=== PATIENT | female | born 1975 | race Two or more races ===

== ENCOUNTER → 2024-11-28 | Outpatient (CLI) | payer MEDICAID, SELFPAY ==
--- NOTE | 2024-11-28 10:15 | XR_ITS ---
Examination: Breast ultrasound complete, bilateral Date and time of exam: November 28, 2024 1036 hours INDICATIONS: Bilateral retroareolar breast pain 4 months Technique: Real-time grayscale ultrasonographic imaging bilateral breasts, including all 4 quadrants as well as nipple retroareolar and axillary regions. Findings: Sonographic images right breast 10:00 cyst 12 x 11 mm 11:00 cyst 8 x 7 mm 11:00 cyst 6 x 5 mm No solid nodules Sonographic images left breast 11:00 cyst 8 x 9 mm No solid nodules IMPRESSION: BI-RADS Category 2: Benign findings
--- NOTE | 2024-11-28 11:15 | XR_ITS ---
Examination: Diagnostic digital mammography, bilateral Computer aided detection 3-D breast Tomosynthesis, bilateral Date and time of exam: November 28, 2024 at 1059 hours Comparison 07/16/2024 indications: Bilateral retroareolar breast pain 4 months Technique: Nonmagnified MLO, CC views of the breasts to been obtained, reconstructed from 3-D Tomosynthesis images. R2 computer aided detection program utilized for evaluation of suspicious masses and/or abnormal calcifications. 3-D Tomosynthesis images obtained. Findings: The breasts are heterogeneously dense, which may obscure small masses Benign calcifications. No suspicious masses Impression: BI-RADS Category 2: Benign findings Recommend yearly follow-up mammography If breast pain persists recommend 6 month follow-up bilateral breast sonography.
== END | disposition home or self-care (01) ==
PROVIDERS: PCP Physician Assistant; Referring Provider Physician Assistant; Visit Provider Physician Assistant
DX: R92.323 Mammographic fibroglandular density, bilateral breasts (principal); R92.1 Mammographic calcification found on diagnostic imaging of breast; N60.01 Solitary cyst of right breast; N60.02 Solitary cyst of left breast
CPT/HCPCS: 76641; 77062; 77066; G0279

== ENCOUNTER → 2024-12-05 | Outpatient (CLI) | payer MEDICAID, SELFPAY ==
--- NOTE | 2024-12-05 07:00 | XR_ITS ---
Examination: MRI abdomen, without contrast Date and time of exam: December 05, 2024 at 0656 hrs. Indications: CT abdomen pelvis June 04, 2024 18 mm low-density right lobe liver lesion Technique: Multiple axial sagittal and coronal images of the abdomen have been obtained with the Siemens high-resolution 1.5 Yashira MRI scanner. Images obtained include T2-weighted fat-suppressed sagittal sections, TR 3500, TE 46, T2 weighted coronal fat suppressed images, TR 3050, TE 84, T2-weighted transverse fat suppressed images, TR 3260, TE 63, proton density transverse images, TR 4720 TE 46, and T1 weighted coronal images, TR 560, TE 13. Findings: Liver is irregular in contour 21 mm right lobe liver cyst, hyperintense signal on the T2-weighted images 2 mm, 4 mm cyst also in the anterior left lobe liver No biliary tract dilatation Gallbladder is not distended No pancreatic mass Spleen is not enlarged No hydronephrosis No common hepatic common bile duct stones Negative for ascites Impression: Liver cysts, the largest on the right lobe liver 21 mm, no solid liver lesions noted
== END | disposition home or self-care (01) ==
PROVIDERS: PCP Physician Assistant; Referring Provider Physician Assistant; Visit Provider Physician Assistant
DX: K76.89 Other specified diseases of liver (principal)
CPT/HCPCS: 74181

== ENCOUNTER → 2025-05-15 | Outpatient (CLI) | payer OTHER, SELFPAY ==
--- NOTE | 2025-05-15 13:30 | XR_ITS ---
Examination: Breast ultrasound complete, bilateral Date and time of exam: May 15, 2025 1533 hours INDICATIONS: Bilateral breast cystic disease on ultrasound November 28, 2024 Technique: Real-time grayscale ultrasonographic imaging bilateral breasts, including all 4 quadrants as well as nipple retroareolar and axillary regions. Findings: Sonographic images right breast 8:00 cyst 6 x 5 mm 9:00 cyst 10 x 6 mm Sonographic images left breast 3:00 cyst 5 x 7 mm 11:00 cyst 6 x 8 mm IMPRESSION: BI-RADS Category 2: Benign cysts, the largest described above No solid nodules
== END | disposition home or self-care (01) ==
PROVIDERS: PCP Physician Assistant; Referring Provider Physician Assistant; Visit Provider Physician Assistant
DX: N60.01 Solitary cyst of right breast (principal); N60.02 Solitary cyst of left breast
CPT/HCPCS: 76641

== ENCOUNTER 2025-07-11 19:07 | Emergency (ER) | payer BC, SELFPAY ==
[2025-07-11 19:07] VITALS: BMI 36.8
[2025-07-11 20:45] VITALS: BP 108/77; PULSE 89; RESP 18; TEMP 36.6; O2SAT 97
[2025-07-11 21:21] LABS: Collection Type, Urine Clean Catch
[2025-07-11 21:30] LABS: HCG Qualitative,Urine Negative
[2025-07-11 21:33] LABS: Bacteria,Urine 1+; Bilirubin,Urine Negative (Negative); Blood,Urine 1+ (Negative); Budding Yeast,Urine Present; Clarity,Urine Turbid (Clear/Hazy); Color,Urine Lt-Yellow (Lt Yel-Yel); Culture Indicated,Urine Yes; Glucose, Urine Negative (Negative); Ketones,Urine Negative (Negative); Leukocyte Esterase,Urine Positive (Negative); Nitrite,Urine Negative (Negative); PH,Urine 6.5 (5.0-7.0); Protein,Urine Trace (Neg - Trace); RBC,Urine 23 /hpf (0-3); Specific Gravity,Urine 1.011 (1.001-1.035); Squamous Epithelial Cell,Urine 6 /hpf (0-5); Urobilinogen,Urine Negative mg/dL (0.0-1.0); WBC,Urine 402 /hpf (0-5)
[2025-07-11 21:39] LABS: Amphetamine/Methamp Scrn,U Negative (Negative); Barbiturate Screen,Urine Negative (Negative); Benzodiazepines Screen,Urine Negative (Negative); Benzoylecgonine Screen, Ur Negative (Negative); Fentanyl Screen,Urine Negative (Negative); Opiate Screen,Urine Negative (Negative); THC Screen,Urine Negative (Negative)
--- NOTE | 2025-07-11 22:05 | PD.EDFMALE ---
ED Female Urogenital RME/HPI General Chief complaint: Abdominal Pain Stated complaint: LOWER ABDOMINAL PAIN, BURNING WITH URINATION Arrival date/time: 07/11/25 19:07 RME / HPI RME / HPI Narrative: DR. YOST MAIN ED EVALUATION: 50 y/o female with Hx of HTN presents with suprapubic abdominal pain, right flank pain, and severe dysuria x 5 days. She took Tylenol 1 G at approximately 4 PM with some relief. Patient states she had to significantly decrease her fluid intake for an endoscopy that she had 4 days ago. No other concerns or complaints expressed at this time. Related Data Previous Rx's ?Medication ?Instructions ?Recorded cephalexin 500 mg capsule 500 mg PO BID #20 caps 09/17/21 oxycodone-acetaminophen 5 mg-325 1 tab PO Q4H PRN pain #10 tabs 09/17/21 mg tablet (Percocet) cephalexin 500 mg capsule 1,000 mg (2 x 500 mg) PO BID 5 07/11/25 days #20 caps Allergies Allergy/AdvReac Type Severity Reaction Status Date / Time ibuprofen Allergy Mild Rash Verified 09/26/17 09:36 Review of Systems Review of Systems Systems Reviewed: All systems reviewed, normal except as documented Past Medical History Past Medical History CARDIAC: Positive Hypertension ED Exam Narrative Physical exam: Generally patient is alert in no obvious distress, heart regular rate and rhythm, lungs clear to auscultation bilaterally, abdomen soft bowel sounds present nondistended epigastric abdominal tenderness without rebound, skin is cool pale and dry, extremities show no edema, neurologic exam shows Paden Coma Scale 15 Course Quality Measures none Orders Category Date Time Status Drug Screen,Urine Stat Lab 07/11/25 20:50 Completed HCG Qualitative,Urine Stat Lab 07/11/25 20:50 Completed Urinalysis, C/S if Indicated Stat Lab 07/11/25 20:50 Completed Urine Culture Stat Lab 07/11/25 20:50 Received HYDROcodone/APAP 10/325 [[place]joy 10/325] Med 07/11/25 22:04 Discontinued 1 tab PO X1 ONE Vital Signs Vital signs: Vital Signs Temperature 97.9 F 07/11/25 20:45 Pulse Rate 89 07/11/25 20:45 Respiratory Rate 18 07/11/25 20:45 Blood Pressure 108/77 07/11/25 20:45 Pulse Oximetry (%) 97 07/11/25 20:45 Oxygen Delivery Method Room Air 07/11/25 20:45 Urogenital - Female MDM Narrative MDM Narrative:: Differential diagnosis: UTI, intra-abdominal infection, bowel obstruction I interpreted all labs. Urine is infected. is negative. K-Flex as prescribed. Continue other current medications. She was given a 10 mg hydrocodone tablet here in the emergency room. Patient will be discharged in stable condition today Tylenol for pain. Patient data External records reviewed:: [facility] previous records (No recent ED records available for review.) Clinical information provided by:: patient Social determinants that could affect healthcare access:: none Patient has the following chronic illnesses:: HTN How is presenting disease/condition affected by chronic disease/condition?: uneffected by Evaluation data The following diagnostics were reviewed and interpreted by me:: lab results Lab and/or radiology exams considered but not ordered:: None Interpretation Summary: See MDM above. Medications / Prescriptions Medications or Prescriptions considered but not ordered:: None Medication administrations:: Medication Administration History Discontinued Medications Hydrocodone Bitart/Acetaminophen (Hydrocodone/Apap 10/325 Tab) 1 tab PO X1 ONE Stop: 07/11/25 22:05 See above if any. Consultations Consultation(s) initiated? (list below): No Diagnosis Urogenital Female Differential Diagnosis: urinary tract infection, cervicitis, ovarian cyst, ruptured ovarian cyst, cystitis and dysmenorrhea Most likely diagnosis given after review of the tests above:: None Admission Indicated Admission indicated?: not indicated Explain why admission is indicated or not indicated:: Patient does not meet admission criteria. Admission Request Was there a request for admission?: No Disposition Plan Disposition Plan: Discharge Discharge Attestation Discharge Attestation: The patient and all family members were given an opportunity to ask questions and understood the discharge instructions. Discharge instructions specifically effects, indications for sooner follow up or return to the emergency department, and the expected course of current diagnosis. Patient condition: Stable Discharge Plan Plan Patient Disposition: HOME (Self Care) Prescriptions/Referrals Prescriptions/Med Rec: New cephalexin 500 mg capsule 1,000 mg PO BID 5 Days Qty: 20 0RF No Action cephalexin 500 mg capsule 500 mg PO BID Qty: 20 0RF oxycodone-acetaminophen [Percocet] 5-325 mg tablet 1 tab PO Q4H MDD 4 PRN (Reason: pain) Qty: 10 0RF Referrals: Arthur Yost MD [Primary Care Provider] - In 1 week Problem List Clinical Impression: Urinary tract infection Patient/Caregiver Discharge Instructions Education Materials: Urinary Tract Infections in Women Additional Instructions: Take the antibiotic as prescribed. Tylenol for pain. Follow-up with your doctor. Return to ER as needed or if condition worsens. Print Language: Greek Stand Alone Forms: Lawanda Award Info., Patient Portal Info Letter
[2025-07-11 22:19] VITALS: BP 107/67; PULSE 76; PULSE 86; RESP 18; RESP 19; TEMP 36.6; TEMP 36.7; O2SAT 96; O2SAT 98
== END 2025-07-11 22:25 | disposition home or self-care (01) ==
PROVIDERS: Physician Assistant; Emergency Provider Emergency Medicine; PCP Family Medicine
DX: N39.0 Urinary tract infection, site not specified (principal); R10.30 Lower abdominal pain, unspecified
CPT/HCPCS: 80307; 81001; 81025; 87077; 87086; 87186; 99283; A9270

== ENCOUNTER 2025-08-27 08:53 | Emergency (ER) | payer BC, SELFPAY ==
[2025-08-27 08:54] VITALS: BMI 35.7
[2025-08-27 09:02] VITALS: BP 141/93; PULSE 68; RESP 18; TEMP 37; O2SAT 98
--- NOTE | 2025-08-27 09:20 | XR_ITS ---
Examination: Pelvic ultrasound, transabdominal, complete Technique: Transabdominal ultrasound of the pelvis performed using grayscale imaging Date and time of exam: August 27, 2025, 11:00 a.m. INDICATIONS: Onset right pelvic pain today FINDINGS: Uterus 7.6 cm endometrial stripe 0.4 cm No uterine mass or intrauterine gestation Right ovary 2.6 cm arterial flow Left ovary 3.3 cm arterial flow 25 x 34 x 25 mm simple cyst IMPRESSION: Left ovarian simple cyst 25 x 34 x 25 mm
--- NOTE | 2025-08-27 09:20 | XR_ITS ---
Examination: CT abdomen and pelvis without contrast. Coronal 3-D reconstructions. Sagittal 2-D reconstructions. Date and time of exam: August 27, 2025, 1050 hours, comparison June 04, 2024 INDICATIONS: Lower pelvic pain today CTDI: vol (mGy): 10.9 DLP: (mGycm): 641 Technique: Axial images of the abdomen have been obtained, 3 mm slice thickness Intravenous contrast material has not been administered. Low dose protocols were performed. One or more of the following dose reduction techniques were used; automated exposure control, adjustment of the mA and/or KV according to patient size, use of iterative reconstruction technique. Findings: Stable 18 mm low-density right lobe liver lesion Cholelithiasis Spleen is not enlarged No pancreatic or adrenal mass 5 mm left renal calculus Normal appendix No hydronephrosis or ureteral calculi Aorta normal size 20 mm fat-containing umbilical hernia 34 mm left adnexal cyst Mild disc narrowing L5-S1 IMPRESSION: Cholelithiasis, negative for cholecystitis 5 mm nonobstructing left renal calculus Normal appendix 34 mm left adnexal cyst
--- NOTE | 2025-08-27 09:21 | PD.EDRME ---
Rapid Medical Screening Exam RME Arrival date/time: 08/27/25 08:53 50-year-old female presents to the emergency department for complaints of pelvic pain and abdominal pain Chief Complaint: Extremity Injury, Lower Time Seen by Provider: 08/27/25 09:13 Vital signs: Vital Signs Temperature 98.6 F 08/27/25 09:02 Pulse Rate 68 08/27/25 09:02 Respiratory Rate 18 08/27/25 09:02 Blood Pressure 141/93 H 08/27/25 09:02 Pulse Oximetry (%) 98 08/27/25 09:02 Oxygen Delivery Method Room Air 08/27/25 09:02
[2025-08-27 09:47] LABS: Collection Type, Urine Clean Catch
[2025-08-27 09:49] LABS: HCG Qualitative,Urine Negative
[2025-08-27 09:51] LABS: Basophils # (Auto) 0.1 Thou/mm3 (0.0-0.2); Basophils % (Auto) 1 % (0-2.5); Eosinophils # (Auto) 0.2 Thou/mm3 (0.0-0.5); Eosinophils % (Auto) 2 % (0-10); Hematocrit 40.8 % (36.0-46.0); Hemoglobin 13.7 g/dL (12.0-16.0); Immature Granulocytes Auto 0.02 Thou/mm3 (0.00-0.00); Lymphocytes # (Auto) 3.0 Thou/mm3 (1.0-4.8); Lymphocytes % (Auto) 35 % (10-50); Mean Corpuscular HGB Conc 33.6 g/dl (31.0-37.0); Mean Corpuscular Hemoglobin 29.7 pg (25.0-35.0); Mean Corpuscular Volume 88 fL (80-100); Monocytes # (Auto) 0.5 Thou/mm3 (0.0-0.8); Monocytes % (Auto) 6 % (0-12); Neutrophils # (Auto) 4.7 Thou/mm3 (1.8-7.7); Neutrophils % (Auto) 55 % (37-80); Nucleated Red Blood Cell # 0.00 Thou/mm3 (0.00-0.00); Nucleated Red Blood Cell % 0 /100 WBC (0); Platelet Count 308 Thou/mm3 (140-440); RDW Standard Deviation 42.1 fL (36.4-46.3); Red Blood Count 4.62 Miln/mm3 (4.00-5.20); White Blood Count 8.5 Thou/mm3 (3.6-11.0)
[2025-08-27 09:52] LABS: Bilirubin,Urine Negative (Negative); Blood,Urine Negative (Negative); Clarity,Urine Clear (Clear/Hazy); Color,Urine Lt-Yellow (Lt Yel-Yel); Culture Indicated,Urine Not Indicated; Glucose, Urine Negative (Negative); Ketones,Urine Negative (Negative); Leukocyte Esterase,Urine Negative (Negative); Nitrite,Urine Negative (Negative); PH,Urine 6.5 (5.0-7.0); Protein,Urine Negative (Neg - Trace); RBC,Urine 5 /hpf (0-3); Specific Gravity,Urine 1.016 (1.001-1.035); Squamous Epithelial Cell,Urine 3 /hpf (0-5); Urobilinogen,Urine Negative mg/dL (0.0-1.0); WBC,Urine 1 /hpf (0-5)
[2025-08-27 10:05] LABS: Alanine Aminotransferase 15 U/L (10-49); Albumin, Serum 4.4 gm/dL (3.5-5.0); Albumin/Globulin Ratio 1.8 (1.2-2.2); Alkaline Phosphatase 69 U/L (46-116); Anion Gap 8 (7-16); Aspartate Amino Transferase 14 U/L (0-34); BUN/Creatinine Ratio 10 Ratio (12-20); Bilirubin,Total 0.6 mg/dL (0.3-1.2); Blood Urea Nitrogen 8 mg/dL (9-23); Calcium 9.2 mg/dL (8.3-10.6); Calcium (Corrected) 9.2 mg/dL (8.5-10.1); Carbon Dioxide 26.8 mMol/L (20.0-31.0); Chloride 106 mMol/L (98-107); Creatinine (Component) 0.8 mg/dL (0.6-1.3); Estimated Creatinine Clearance 92.4 mL/min (>60); Globulin 2.4 gm/dL (2.3-3.5); Glucose 93 mg/dL (74-106); Lipase 29 U/L (12-53); Osmolality,Calculated 279 (275-295); Potassium 4.2 mMol/L (3.4-5.1); Sodium 141 mMol/L (136-145); Total Protein 6.8 gm/dL (5.7-8.2); eGFR > 60 See Note
--- NOTE | 2025-08-27 12:31 | PD.EDABDPN ---
ED Abdominal Pain RME/HPI General Chief Complaint: Extremity Injury, Lower Stated complaint: groin pain Time seen by provider: 08/27/25 09:13 Arrival date/time: 08/27/25 08:53 Limitations: no limitations RME / HPI RME / HPI narrative: 08/27/25 08:53 50-year-old female presents to the emergency department for complaints of pelvic pain and abdominal pain which began after bending over in the shower and her pain is worse with ambulating and moving her right leg. Denies nausea vomiting, diarrhea, fever, skin changes. Related Data Previous Rx's ?Medication ?Instructions ?Recorded cephalexin 500 mg capsule 500 mg PO BID #20 caps 09/17/21 oxycodone-acetaminophen 5 mg-325 1 tab PO Q4H PRN pain #10 tabs 09/17/21 mg tablet (Percocet) Allergies Allergy/AdvReac Type Severity Reaction Status Date / Time ibuprofen Allergy Mild Rash Verified 09/26/17 09:36 Review of Systems Review of Systems Systems Reviewed: All systems reviewed, normal except as documented Past Medical History Past Medical History CARDIAC: Positive Hypertension; Negative Congestive Heart Failure RESPIRATORY: Negative Chronic Obstructive Pulmonary Disease (COPD) GENITOURINARY: Negative Renal Disease ENDOCRINE: Negative Diabetes Mellitus Type 1 or Diabetes Mellitus Type 2 Social History SMOKING STATUS: Never smoker SUBSTANCE USE: does not use ED Exam General Limitations: Present no limitations General appearance: Present alert and in no apparent distress Head Head exam: Present atraumatic Eye Eye exam: Present normal appearance, PERRL and EOMI ENT ENT exam: Present normal exam, normal oropharynx and mucous membranes moist Neck Neck exam: Present normal inspection, full ROM and trachea midline Chest Chest inspection: Present normal inspection and symmetric chest wall rise Respiratory Respiratory exam: Present normal lung sounds bilaterally Cardiovascular Cardiovascular exam: Present regular rate, normal rhythm and normal heart sounds Abdominal Exam Abdominal exam: Present soft and normal bowel sounds Abdominal tenderness: Absent RUQ (Positive tenderness to palpation to the right groin. ) or RLQ Extremities Exam Extremities exam: Present normal inspection and full ROM Expanded Lower Extremity Exam Lower leg exam: Present full ROM, tenderness and other (Full range of motion, strength 5 out of 5 for right hip. Compartments soft right lower extremity.) Back Exam Back exam: Present normal inspection and full ROM Neurological Exam Neurological exam: Present alert, oriented X3 and CN II-XII intact Psychiatric Psychiatric exam: Present normal affect and normal mood Skin Skin exam: Present warm, dry, intact and normal color Course Quality Measures none Orders Category Date Time Status CT abdomen pelvis wo con Stat Exams 08/27/25 09:20 Completed US pelvic complete Stat Exams 08/27/25 09:20 Completed CBC Stat Lab 08/27/25 09:39 Completed Comprehensive Metabolic Panel Stat Lab 08/27/25 09:39 Completed HCG Qualitative,Urine Stat Lab 08/27/25 09:35 Completed Lipase Stat Lab 08/27/25 09:39 Completed UA, C/S IF [Urinalysis, C/S if Indicated] Stat Lab 08/27/25 09:35 Completed Vital Signs Vital signs: Vital Signs Temperature 98.6 F 08/27/25 09:02 Pulse Rate 68 08/27/25 09:02 Respiratory Rate 18 08/27/25 09:02 Blood Pressure 141/93 H 08/27/25 09:02 Pulse Oximetry (%) 98 08/27/25 09:02 Oxygen Delivery Method Room Air 08/27/25 09:02 Abdominal Pain MDM MDM Narrative MDM Narrative:: MDM: The patient presents with right groin pain x 3 days without definite explanation found on evaluation today. However, there are no signs of peritonitis or other life-threatening or serious etiology. Right lower extremity remains distally neurovascular intact with soft compartments. I considered admission; however, given negative work up and imaging, admission is not indicated. The patient appears stable for discharge and has been instructed to return for re-evaluation immediately if the symptoms worsen or change in any way. If the symptoms are not resolved in 24-48 hours, the patient is asked to get rechecked by their PMD or return to the ED. Patient data External records reviewed:: None Clinical information provided by:: patient Social determinants that could affect healthcare access:: none Patient has the following chronic illnesses:: As noted How is presenting disease/condition affected by chronic disease/condition?: uneffected by Evaluation data The following diagnostics were reviewed and interpreted by me:: lab results and radiology exam(s) Lab and/or radiology exams considered but not ordered:: Ordered Interpretation Summary: Reviewed Medications / Prescriptions Medications or Prescriptions considered but not ordered:: Ordered Medication administrations:: Ordered Consultations Consultation(s) initiated? (list below): No Diagnosis Differential diagnosis abdominal pain: other Most likely diagnosis given after review of the tests above:: Right groin strain versus sprain versus reducible hernia Admission Indicated Admission indicated?: not indicated Admission Request Was there a request for admission?: No Disposition Plan Disposition Plan: Discharge Discharge Attestation Discharge Attestation: The patient and all family members were given an opportunity to ask questions and understood the discharge instructions. Discharge instructions specifically effects, indications for sooner follow up or return to the emergency department, and the expected course of current diagnosis. Patient condition: Stable Discharge Plan Plan Patient Disposition: HOME (Self Care) Prescriptions/Referrals Prescriptions/Med Rec: No Action cephalexin 500 mg capsule 500 mg PO BID Qty: 20 0RF oxycodone-acetaminophen [Percocet] 5-325 mg tablet 1 tab PO Q4H MDD 4 PRN (Reason: pain) Qty: 10 0RF Referrals: Arthur Yost MD [Primary Care Provider, Family Practice] - In 1 week Problem List Clinical Impression: Groin strain Patient/Caregiver Discharge Instructions Education Materials: ED Groin Strain Additional Instructions: Follow up with your primary medical doctor within 24 hours. Return to the Emergency Room immediately for any new, worsening, continuing symptoms or any concerns at all. Return to the Emergency Room within 24 hours if you are unable to follow up with your primary medical doctor within 24 hours. Print Language: Sinhala Stand Alone Forms: Lawanda Award Info., Patient Portal Info Letter ALENA/JANIE Supervising Physician ALENA/JANIE Supervising Physician: Dr. Calixto Mccray
[2025-08-27] MEDS: KETOROLAC INJ 30 MG/ML VIAL IM (12:54)
== END 2025-08-27 12:59 | disposition home or self-care (01) ==
PROVIDERS: Nurse Practitioner Primary Care; Emergency Provider Emergency Medicine; PCP Family Medicine
DX: S39.011A Strain of muscle, fascia and tendon of abdomen, initial encounter (principal); X50.0XXA Overexertion from strenuous movement or load, initial encounter
CPT/HCPCS: 36415; 74176; 76856; 80053; 81001; 81025; 83690; 85025; 96372; 99283; J1885